=== PATIENT | female | born 1985 | race African-American/Black ===

== ENCOUNTER 2016-11-26 14:20 | Emergency (ER) | payer OTHER ==
[~2016-11-26] VITALS: Ht 160 cm; Wt 86.4 kg
[2016-11-26] MEDS ORDERED: ONDANSETRON HCL 4 MG TABLET PO ONE (17:30)
[2016-11-26] MEDS ORDERED: ONDANSETRON HCL 4 MG/2 ML VIAL IVP ONE (17:45)
[2016-11-26] MEDS ORDERED: SODIUM CHLORIDE 0.9% 1,000 ML IV ONE (17:45)
[2016-11-26 17:49] VITALS: BP 116/85
[2016-11-26 17:58] LABS: APPEARANCE,URINE SLIGHTLY CLOUDY (CLEAR); GLUCOSE, URINE (UA) NEGATIVE (NEGATIVE); PH,URINE 5.5 (5.0-8.0); PROTEIN,URINE POS 1+ (NEGATIVE)
[2016-11-26 17:59] LABS: KETONES,URINE >=80 mg/dL (NEGATIVE); LEUKOCYTE ESTERASE ,URINE NEGATIVE (NEGATIVE)
[2016-11-26 18:08] LABS: ADD UA MICROSCOPIC YES; OCCULT BLOOD,URINE SMALL (NEGATIVE); RBC,URINE 0-2 /HPF (0-2)
[2016-11-26 18:09] LABS: SQUAMOUS EPITHELIAL CELL,UR Few /LPF (None Seen)
== END 2016-11-26 19:09 | disposition home or self-care (01) ==
LOC: EMS 14:24
DX: O21.0 Mild hyperemesis gravidarum (principal); Z3A.01 Less than 8 weeks gestation of pregnancy
CPT/HCPCS: 81001; 96361; 96374; 99284; J2405; J7030